=== PATIENT | female | born 1935 | race African-American/Black ===

== ENCOUNTER 2016-08-25 12:15 | Outpatient (CLI) | payer OTHER ==
[2015-10-31 15:10] VITALS: BP 146/99
[2016-08-25 12:49] LABS: BASOPHILS % 0.5 (0.0-1.5); EOSINOPHILS % 2.7 % (0.0-6.8); LYMPHOCYTES # 2.8 # k/uL (0.6-4.0); MEAN CORPUSCULAR HEMOGLOBIN 27.3 pg (28.0-34.0); MONOCYTES # 0.3 # k/uL (0.0-0.9); MONOCYTES % 3.8 % (0.0-11.0); NEUTROPHILS # 4.9 # k/uL (1.4-7.7)
[2016-08-25 13:05] LABS: eGFR (African) > 60; eGFR (Non-African) > 60
== END 2016-08-25 12:16 ==
LOC: LAB 12:15
PROVIDERS: ATTEND Family Medicine
DX: R53.82 Chronic fatigue, unspecified (principal)
CPT/HCPCS: 36415; 80053; 84443; 85025

== ENCOUNTER 2017-04-27 11:44 | Outpatient (CLI) | payer OTHER ==
[2015-10-31 15:10] VITALS: BP 146/99
[2017-04-27 12:20] LABS: eGFR (African) > 60; eGFR (Non-African) > 60
== END 2017-04-27 11:45 ==
LOC: LAB 11:44
PROVIDERS: ATTEND Family Medicine
DX: I10 Essential (primary) hypertension (principal); R41.3 Other amnesia
CPT/HCPCS: 36415; 80053; 84439; 84443; 84481